=== PATIENT | male | born 1930 | race Caucasian/White ===

== ENCOUNTER 2016-05-19 11:02 | Emergency (ER) | payer MEDICARE, OTHER ==
[~2016-05-19] VITALS: Ht 185.4 cm; Wt 91.0 kg
[2016-05-19 11:05] VITALS: BP 115/72; PULSE 84; RESP 16; TEMP 97.6; O2SAT 95
[2016-05-19] MEDS ORDERED: SIMV40TA PO (11:19)
[2016-05-19] MEDS ORDERED: AVOD0.5C PO (11:19)
[2016-05-19] MEDS ORDERED: DOXA1TAB43 PO (11:19)
[2016-05-19] MEDS ORDERED: CARV3.12 PO (11:19)
[2016-05-19] MEDS ORDERED: FEXO15TA PO (11:19)
[2016-05-19] MEDS ORDERED: SPIR25TA PO (11:19)
[2016-05-19] MEDS ORDERED: ASPI81CH37 CHEW (11:19)
[2016-05-19] MEDS ORDERED: BUME0.5T PO (11:19)
--- NOTE | 2016-05-19 11:19 | PD ---
HPI Chief Complaint: ENT Complaint Time Seen by Provider: 11:10 Travel History International Travel<30 days: No Contact w/Intl Traveler<30days: No Traveled to known affect area: No History of Present Illness HPI This is an 86-year-old male who presents to the emergency department with difficulty swallowing. He says it's been going on for months but has been getting worse recently. His brought him in because last night he was having difficulty swallowing his pills. He is able to drink without difficulty and sometimes he has trouble eating. He denies any lightheadedness or dizziness. They tried to make appointment with an ENT but the next appointment they had was June 11 in the patient was concerned that he couldn't wait that long. They are not [facility] the [facility] and [facility] and live in [place] 6 months out of the year so they don't have a primary care physician here PFSH Past Medical History Hx Anticoagulant Therapy: Yes (BABY ASA) Cardiovascular Problems: Yes (HTN, CHOL) Diabetes: No Social History Tobacco Use: No Allergies-Medications (Allergen,Severity, Reaction): Coded Allergies: No Known Allergies (Unverified , 05/19/16) Review of Systems General / Constitutional: No: Fever, Chills Cardiovascular: No: Chest Pain or Discomfort Physical Exam Narrative GENERAL:Well appearing, no acute distress SKIN: Warm and dry. HEAD: Atraumatic. Normocephalic. EYES: Pupils equal and round. No injection or drainage. ENT: Moist mucous membranes NECK: Trachea midline. CARDIOVASCULAR: Regular rate and rhythm. No murmur appreciated. RESPIRATORY: Clear to auscultation. Breath sounds equal bilaterally. GASTROINTESTINAL: Abdomen soft, non-tender, nondistended. MUSCULOSKELETAL: No obvious deformities. NEUROLOGICAL: Awake and alert. No obvious cranial nerve deficits. Moving all extremities. PSYCHIATRIC: Appropriate mood and affect; insight and judgment normal. Data Data Last Documented VS Vital Signs Date Time Temp Pulse Resp B/P Pulse Ox O2 Delivery O2 Flow Rate FiO2 05/19/16 11:05 97.6 84 16 115/72 95 MDM Medical Decision Making Medical Screen Exam Complete: Yes Emergency Medical Condition: Yes Differential Diagnosis Achalasia, esophageal cancer, esophageal stricture Narrative Course This is an 86-year-old male who presents to the emergency department with dysphagia. He is able to take liquids and appears well-hydrated and well- nourished. Think is appropriate for outpatient follow-up. He was given a referral to [facility] and advised to make appointment as soon as possible. Diagnosis Primary Impression: Dysphagia Qualified Code: R13.10 - Dysphagia, unspecified type Referrals: [facility] Patient Instructions: General Instructions Additional Instructions: If you are unable to drink liquids or keep anything down return to the emergency room.. Follow-up as soon as possible with a GI doctor. Med/Other Pt SpecificInfo: No Change to Meds Disposition: 01 DISCHARGE HOME Condition: Stable Sudha Lyons MD May 19, 2016 11:19
== END 2016-05-19 11:25 | disposition home or self-care (01) ==
LOC: PHED 11:02
DX: R13.10 Dysphagia, unspecified (principal); I10 Essential (primary) hypertension; E78.00 Pure hypercholesterolemia, unspecified; Z79.82 Long term (current) use of aspirin
CPT/HCPCS: 99283

== ENCOUNTER 2016-06-09 17:36 | Emergency (ER) | payer MEDICARE, OTHER ==
[~2016-06-09 17:36] MED LIST: ASPI81CH37 CHEW; AVOD0.5C PO; BUME0.5T PO; CARV3.12 PO; DOXA1TAB43 PO; FEXO15TA PO; SIMV40TA PO; SPIR25TA PO
[2016-06-09 17:38] VITALS: BP 111/53; PULSE 75; RESP 16; TEMP 96.5; O2SAT 97
[2016-06-09 18:00] VITALS: BP 92/55; PULSE 59; RESP 18; O2SAT 97
[2016-06-09] MEDS ORDERED: SODIUM CHLORIDE 0.9% FLUSH 10 ML FLUSH IVF PRN (18:00)
--- NOTE | 2016-06-09 18:16 | RADHPO ---
EXAM DATE/TIME: 06/09/2016 17:57 [facility] COMPARISON: No previous studies available for comparison. INDICATIONS : Chest pain. MEDICAL HISTORY : None. SURGICAL HISTORY : Pacemaker. ENCOUNTER: Initial ACUITY: 1 day PAIN SCORE: 10/10 LOCATION: Bilateral chest FINDINGS: A single view of the chest demonstrates elevation of the left hemidiaphragm concomitant left basilar atelectatic changes. Right lung is clear. Left subclavian bipolar pacer/defibrillator is radiographic ally intact. Heart size is borderline prominent but well compensated. 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 Degenerative spurring in the dorsal spine. Osseous structures are otherwise i ntact. CONCLUSION: 1. Elevation of left hemidiaphragm with concomitant atelectatic changes in the left base. Lungs are o therwise clear 2. Borderline prominent but well compensated heart. Pete Malagon MD on June 09, 2016 at 18:12 Board Certified Radiologist. This report was verified electronically.
[2016-06-09 18:39] LABS: AUTOMATED NEUTROPHIL # 4.8 TH/MM3 (1.8-7.7); BASOPHIL # 0.1 TH/MM3 (0-0.2); BASOPHIL % 0.8 % (0.0-2.0); EOSINOPHIL # 0.2 TH/MM3 (0-0.4); EOSINOPHIL % 3.5 % (0.0-4.0); HEMATOCRIT 39.7 % (39.0-51.0); HEMO FLAGS DIFF FINAL; LYMPH % 18.1 % (9.0-44.0); LYMPHOCYTE # 1.2 TH/MM3 (1.0-4.8); MEAN CORPUSCULAR HEMOGLOBIN 31.7 PG (27.0-34.0); MONO % 7.6 % (0.0-8.0); PLATELET COUNT 126 TH/MM3 (150-450); RED BLOOD COUNT 4.14 MIL/MM3 (4.50-5.90); RED CELL DISTRIBUTION WIDTH 13.1 % (11.6-17.2); WHITE BLOOD COUNT 6.8 TH/MM3 (4.0-11.0)
[2016-06-09 18:55] LABS: CHLORIDE 106 MEQ/L (98-107); POTASSIUM 4.4 MEQ/L (3.5-5.1); SODIUM (NA) 141 MEQ/L (136-145)
[2016-06-09 18:58] LABS: ANION GAP 9 MEQ/L (5-15); BICARBONATE 25.8 MEQ/L (21.0-32.0); BLOOD UREA NITROGEN 26 MG/DL (7-18); MAGNESIUM 2.4 MG/DL (1.5-2.5)
[2016-06-09 19:00] LABS: APTT (PATIENT) 26.8 SEC (24.3-30.1); PROTHROMBIN TIME - PATIENT 10.8 SEC (9.8-11.6)
[2016-06-09 19:01] LABS: ALT (GPT) 20 U/L (12-78); AST (GOT) 19 U/L (15-37); GLOMERULAR FILTRATION RATE 32 ML/MIN (>89)
[2016-06-09 19:03] LABS: TOTAL BILIRUBIN ADULT 0.6 MG/DL (0.2-1.0)
[2016-06-09 19:04] LABS: ALKALINE PHOSPHATASE 80 U/L (45-117)
[2016-06-09 19:14] LABS: CREATINE KINASE 88 U/L (39-308)
[2016-06-09 19:20] VITALS: BP 113/71; PULSE 60; RESP 18; TEMP 97.5; O2SAT 96
--- NOTE | 2016-06-09 19:35 | PD ---
HPI Chief Complaint: Chest Pain Time Seen by Provider: 19:05 Travel History International Travel<30 days: No Contact w/Intl Traveler<30days: No Traveled to known affect area: No History of Present Illness HPI The patient is an 86-year-old male that states he had chest pain beginning around 5/5:30 PM tonight. The chest pain is sharp and constant although it is slowly going away now. He denies any nausea, shortness of breath, diaphoresis or radiation of pain. The pain is located in the area on the anterior ribs to the right. The patient states he does not have any history of heart disease. He had a normal stress test 6 months ago. He did have a pacemaker/ defibrillator put in before he left for [place] last month. He states it is never fired off. He does have a history of elevated cholesterol but denies any hypertension, diabetes and does not smoke. He is from [facility] and has no local physician. PFSH Past Medical History Hx Anticoagulant Therapy: Yes (BABY ASA) Cardiovascular Problems: Yes (HTN, CHOL) High Cholesterol: Yes Coronary Artery Disease: Yes Diabetes: No Hypertension: Yes Past Surgical History Cardiac Surgery: Yes (AICD, PACER) Social History Alcohol Use: No Tobacco Use: No Substance Use: No Allergies-Medications (Allergen,Severity, Reaction): Coded Allergies: No Known Allergies (Unverified , 06/09/16) Reported Meds & Prescriptions Reported Meds & Active Scripts Active Reported Doxazosin (Doxazosin Mesylate) 8 Mg Tab 8 Mg PO DAILY Aspirin Low Dose (Aspirin) 81 Mg Chew 81 Mg CHEW DAILY [place]ida Allergy (Fexofenadine HCl) 180 Mg Tab 180 Mg PO DAILY Spironolactone 25 Mg Tab 25 Mg PO DAILY Avodart (Dutasteride) 0.5 Mg Cap 0.5 Mg PO DAILY Bumetanide 0.5 Mg Tab 0.5 Mg PO DAILY Carvedilol 3.125 Mg Tab 3.125 Mg PO BID Simvastatin 40 Mg Tab 40 Mg PO HS Review of Systems Except as stated in HPI: all other systems reviewed are Neg Physical Exam Narrative GENERAL: The patient is alert, oriented 3 in minimal apparent distress with his chest pain. His vital signs are normal. SKIN: Focused skin assessment warm/dry. HEAD: Atraumatic. Normocephalic. EYES: Pupils equal and round. No scleral icterus. No injection or drainage. ENT: No nasal bleeding or discharge. Mucous membranes pink and moist. NECK: Trachea midline. No JVD. CARDIOVASCULAR: Regular rate and rhythm. No murmur appreciated. I can completely reproduce the patient's pain by pressing on the small area of the anterior ribs over the right chest wall. RESPIRATORY: No accessory muscle use. Clear to auscultation. Breath sounds equal bilaterally. GASTROINTESTINAL: Abdomen soft, non-tender, nondistended. Hepatic and splenic margins not palpable. MUSCULOSKELETAL: No obvious deformities. No clubbing. No cyanosis. No edema. NEUROLOGICAL: Awake and alert. No obvious cranial nerve deficits. Motor grossly within normal limits. Normal speech. PSYCHIATRIC: Appropriate mood and affect; insight and judgment normal. Data Data Last Documented VS Vital Signs Date Time Temp Pulse Resp B/P Pulse Ox O2 Delivery O2 Flow Rate FiO2 06/09/16 18:00 59 18 92/55 97 Room Air 06/09/16 17:38 96.5 Orders Electrocardiogram (06/09/16 17:52) B-Type Natriuretic Peptide (06/09/16 17:52) Ckmb (Isoenzyme) Profile (06/09/16 17:52) Complete Blood Count With Diff (06/09/16 17:52) Comprehensive Metabolic Panel (06/09/16 17:52) Magnesium (Mg) (06/09/16 17:52) Prothrombin Time / Inr (Pt) (06/09/16 17:52) Act Partial Throm Time (Ptt) (06/09/16 17:52) Troponin I (06/09/16 17:52) Chest, Single Ap (06/09/16 17:52) Ecg Monitoring (06/09/16 17:52) Bilateral Bp Monitoring (06/09/16 17:52) Iv Access Insert/Monitor (06/09/16 17:52) Oximetry (06/09/16 17:52) Sodium Chloride 0.9% Flush (Ns Flush) (06/09/16 18:00) Labs Laboratory Tests Test 06/09/16 18:05 White Blood Count 6.8 TH/MM3 Red Blood Count 4.14 MIL/MM3 Hemoglobin 13.1 GM/DL Hematocrit 39.7 % Mean Corpuscular Volume 96.0 FL Mean Corpuscular Hemoglobin 31.7 PG Mean Corpuscular Hemoglobin 33.0 % Concent Red Cell Distribution Width 13.1 % Platelet Count 126 TH/MM3 Mean Platelet Volume 10.0 FL Neutrophils (%) (Auto) 70.0 % Lymphocytes (%) (Auto) 18.1 % Monocytes (%) (Auto) 7.6 % Eosinophils (%) (Auto) 3.5 % Basophils (%) (Auto) 0.8 % Neutrophils # (Auto) 4.8 TH/MM3 Lymphocytes # (Auto) 1.2 TH/MM3 Monocytes # (Auto) 0.5 TH/MM3 Eosinophils # (Auto) 0.2 TH/MM3 Basophils # (Auto) 0.1 TH/MM3 CBC Comment DIFF FINAL Differential Comment Prothrombin Time 10.8 SEC Prothromb Time International 1.0 RATIO Ratio Activated Partial 26.8 SEC Thromboplast Time Sodium Level 141 MEQ/L Potassium Level 4.4 MEQ/L Chloride Level 106 MEQ/L Carbon Dioxide Level 25.8 MEQ/L Anion Gap 9 MEQ/L Blood Urea Nitrogen 26 MG/DL Creatinine 2.00 MG/DL Estimat Glomerular Filtration 32 ML/MIN Rate Random Glucose 110 MG/DL Calcium Level 8.6 MG/DL Magnesium Level 2.4 MG/DL Total Bilirubin 0.6 MG/DL Aspartate Amino Transf 19 U/L (AST/SGOT) Alanine Aminotransferase 20 U/L (ALT/SGPT) Alkaline Phosphatase 80 U/L Total Creatine Kinase 88 U/L Troponin I 0.04 NG/ML B-Type Natriuretic Peptide 113 PG/ML Total Protein 6.6 GM/DL Albumin 3.6 GM/DL MDM Medical Decision Making Medical Screen Exam Complete: Yes Emergency Medical Condition: Yes Medical Record Reviewed: Yes Interpretation(s) The EKG shows demand pacing with a rate of [address] elevation or depression. No previous EKGs are available. The CBC is normal and the coagulation profile is normal. The complete metabolic profile shows a BUN of 26 , creatinine 2.0 but is otherwise unremarkable. The BNP is 113. The cardiac enzymes are normal. The chest x-ray shows elevation of the left hemidiaphragm with concomitant atelectatic change in the left base but the lungs are otherwise clear. The heart is borderline in size. Differential Diagnosis Chest wall pain, atypical chest pain, esophageal pain, gastrointestinal pain, acute coronary syndrome, pneumothoraxunlikely, electrolyte disorder, renal insufficiency Narrative Course The patient does have some renal insufficiency but this is probably chronic. He is given his lab work, copy of EKG and chest x-ray reading to take to his doctors in [place]. The impression is atypical chest pain. This is probably chest wall pain. Diagnosis Primary Impression: Atypical chest pain Additional Instructions: As we discussed, take this lab work and EKG copy and chest x-ray reading to your doctors and [place] further records. This appears to be chest wall pain. Continue to take your baby aspirin daily. Med/Other Pt SpecificInfo: No Change to Meds Disposition: 01 DISCHARGE HOME Condition: Stable Chapincito Matamoros MD Jun 09, 2016 19:34
[2016-06-09 20:06] VITALS: BP 121/72
--- NOTE | 2016-06-09 23:09 | EKG ---
Date Performed: 06/09/2016 Time Performed: 17:40:42 PTAGE: 86 years EKG: Demand pacing Pacemaker rhythm - no further analysis Abnormal ECG NO PREVIOUS TRACING DOCTOR: Arnie Epps Interpretating Date/Time 06/09/2016 23:08:17
== END 2016-06-09 20:06 | disposition home or self-care (01) ==
LOC: PHED 17:36
DX: R07.89 Other chest pain (principal); E78.00 Pure hypercholesterolemia, unspecified; I25.10 Atherosclerotic heart disease of native coronary artery without angina pectoris; R94.31 Abnormal electrocardiogram [ECG] [EKG]; I10 Essential (primary) hypertension; Z95.0 Presence of cardiac pacemaker; Z79.82 Long term (current) use of aspirin
CPT/HCPCS: 71010; 80053; 82550; 83735; 83880; 84484; 85025; 85610; 85730; 93005